=== PATIENT | female | born 1945 | race Hispanic/Latino ===

== ENCOUNTER 2020-02-21 13:00 | Outpatient (CLI) | payer MEDICARE, MEDICAID, SELFPAY ==
--- NOTE | ~2020-02-21 | US_ITS ---
EXAMINATION: US pelvic complete w TV DATE: 02/21/2020 13:47 INDICATION: Pelvic pain Comparison:08/24/2016 TECHNIQUE: Multiple transabdominal and endovaginal sonographic images of the pelvis performed. FINDINGS: The uterus measures 5.4 x 4 x 2.2 cm. There are myometrial calcifications, most likely seco ndary to fibroid changes. The endometrial complex measures 3.8 mm. The ovaries are not visualized. There is no free fluid in the pelvis. There are no abnormal masses seen on either side. IMPRESSION: 1. Uterine calcifications, likely due to underlying fibroid changes. Otherwise, unremarkable pelvic u ltrasound. Reviewed, dictated and finalized at location A. IMPRESSION: 1. Uterine calcifications, likely due to underlying fibroid changes. Otherwise, unremarkable pelvic ultrasound.
== END 2020-02-21 13:01 | disposition home or self-care (01) ==
PROVIDERS: PCP Family Medicine; Visit Provider Family Medicine
DX: R10.2 Pelvic and perineal pain (principal); D25.9 Leiomyoma of uterus, unspecified
CPT/HCPCS: 76830; 76856

== ENCOUNTER 2020-03-13 14:24 | Outpatient (CLI) | payer MEDICARE, MEDICAID, SELFPAY ==
--- NOTE | ~2020-03-13 | CT_ITS ---
EXAMINATION: CT abdomen pelvis w con EXAM DATE: 03/13/2020 14:56 INDICATION: Abdominal pain, symptoms 2 months. Nausea. TECHNIQUE: Spiral CT of the abdomen and pelvis was performed following intravenous injection of 100 m L Omnipaque 350. Axial, coronal and sagittal images were reviewed. The dose-length product (DLP) fo r this examination was 598.89 mGy-cm. The exposure was tailored according to patient size (auto mA e xposure control), and iterative reconstruction (ASIR) was used as additional dose reduction technique . Comparison is made to prior examination from 06/19/2019. FINDINGS: The liver, spleen, adrenal glands and pancreas are unremarkable. There are cholecystectomy clips. Portal and splenic veins are patent. Kidneys enhance symmetrically. There is no hydronephr osis. The uterus is retroverted and morphologically normal. The bladder is unremarkable. There i s no retroperitoneal or pelvic lymphadenopathy. There is mild scattered arteriosclerotic disease. The appendix is normal. The stomach and small bowel are unremarkable. There is mild scattered coloni c diverticulosis. There is no adjacent inflammatory change to suggest diverticulitis. There is expec yani amount of colonic stool. No free intraperitoneal gas. The heart is normal in size. There are no pericardial or pleural effusions. The lung bases are unremarkable. There are no osteoblastic or osteolytic lesions identified. 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 IMPRESSION: 1. No acute intra-abdominal findings. 2. Chronic L4 spondylolysis, grade 1 anterolisthesis. 3. Mild scattered colonic diverticulosis. Reviewed, dictated and finalized at location B.
[2020-03-13 14:50] LABS: Estimated Glomerular Filt Rate > 60
== END 2020-03-13 14:25 | disposition home or self-care (01) ==
PROVIDERS: PCP Family Medicine; Visit Provider Family Medicine
DX: K57.30 Diverticulosis of large intestine without perforation or abscess without bleeding (principal); M47.896 Other spondylosis, lumbar region
CPT/HCPCS: 36415; 74177; Q9967

== ENCOUNTER 2021-12-23 09:21 | Outpatient (CLI) | payer OTHER, SELFPAY ==
--- NOTE | ~2021-12-23 | CT_ITS ---
EXAMINATION: CT abdomen pelvis w con INDICATION: Abdominal pain TECHNIQUE: Computed tomographic images of the abdomen and pelvis were obtained after the administrati on of 100 cc of Omnipaque 350 intravenous contrast. The dose-length product (DLP) was 518.55 mGy-cm. Automated exposure control and iterative reconstruction technique were employed. COMPARISON: 03/13/2020 FINDINGS: Minimal dependent atelectasis is present in the lung bases. The heart size is normal. The g allbladder is surgically absent. There is mild enlargement of the common bile duct and central intrah epatic ducts which is likely due to post cholecystectomy state. The liver, spleen, pancreas, and adre nal glands are normal. Hypoattenuating lesions in the kidneys, measuring up to 6 mm on the left, are too small to characterize but likely represent cysts. No pathologically enlarged abdominal or pelvic lymph nodes are identified. The appendix is normal. No pathologically enlarged abdominal or pelvic ly mph nodes are identified. There is no free intraperitoneal gas or evidence of bowel obstruction. Calc ified uterine fibroids are noted. A moderate volume of colonic stool is present. Again noted is L4 sp ondylolysis with bilateral pars defects and stable grade 1 anterolisthesis of L4 on L5. IMPRESSION: 1. No CT correlate for the patient's symptoms. Reviewed, dictated and finalized at location A.
[2021-12-23 09:55] LABS: Estimated Glomerular Filt Rate > 60
== END 2021-12-23 09:22 | disposition home or self-care (01) ==
PROVIDERS: PCP Family Medicine; Visit Provider Family Medicine
DX: R10.9 Unspecified abdominal pain (principal)
CPT/HCPCS: 74177; Q9967

== ENCOUNTER 2022-01-18 17:11 | Observation (INO) | payer OTHER, SELFPAY ==
--- NOTE | ~2022-01-18 | XR_ITS ---
EXAMINATION: XR abdomen/kub 1V INDICATION: Bowel obstruction TECHNIQUE: Supine views of the abdomen were obtained on 2 radiographs. COMPARISON: CT from yesterday FINDINGS: There is a moderate volume of colonic stool. Gas is seen in the rectum. No definitely dilat ed loops of bowel are evident. The visualized lung bases are clear. Cholecystectomy clips are noted. IMPRESSION: 1. No definitely dilated loops of bowel on this supine examination. Reviewed, dictated and finalized at location A.
--- NOTE | ~2022-01-18 | CT_ITS ---
EXAMINATION: CT abdomen pelvis w con DATE: 01/18/2022 19:18 INDICATION: suprapubic pain TECHNIQUE: Computed tomography (CT) of the abdomen and pelvis was performed with 100 mL Omnipaque-350 intravenous contrast. Automated exposure control and iterative reconstruction technique were employe d. The dose-length product was 621.06 mGy-cm. COMPARISON: 12/23/2021. FINDINGS: Lower thorax: Senescent changes and bibasilar atelectasis. Coronary artery calcifications. Liver: Normal. Biliary/Gallbladder: Gallbladder is absent. No bile duct dilation. Spleen: Normal. Pancreas: No mass or duct dilation. Adrenals:No mass. Kidneys: Subcentimeter left renal hypodensities that are too small to characterize but most likely re present cysts. No stone or hydronephrosis. GI tract: Loop of mildly dilated ileum deep in the pelvis, with mucosal hyperemia and mild surroundin g inflammatory change/fluid. The distal ileum contains fecal content as can be seen with decreased tr ansit time. Normal appendix. Diverticulosis without diverticulitis. Mesentery/Peritoneum: No ascites, mass, or free air. Retroperitoneum: No mass. Pelvis: Pelvic organs are within normal limits. Soft Tissues: Bilateral fat-containing inguinal hernias, with mild inflammatory change and fluid on t he right. Bones: No acute osseous finding. IMPRESSION: Findings concerning for early closed loop obstruction of the distal ileum, possibly secondary to an i nternal hernia. Mildly inflamed fat-containing right inguinal hernia. Results discussed with Dr. Wells by Dr. Sanchez telephonically at 7:34 PM on 01/18/2022. Reviewed, dictated and finalized at location K. IMPRESSION: Findings concerning for early closed loop obstruction of the distal ileum, poss ibly secondary to an internal hernia. Mildly inflamed fat-containing right ingu inal hernia. Results discussed with Dr. Wells by Dr. Sanchez telephonically at 7:34 PM on .
--- NOTE | ~2022-01-18 | XR_ITS ---
EXAMINATION: XR sm bowel follow through WS DATE: 01/19/2022 13:12 INDICATION: Right lower quadrant pain, possible bowel obstruction TECHNIQUE: Group Controller radiograph(s) of the abdomen was/were obtained. Oral contrast was administered, and sequential radiographs of the abdomen were obtained until oral contrast was noted to be in the proxi mal colon. No fluoroscopic images are obtained. COMPARISON: CT from yesterday FINDINGS: Transit time from the stomach to proximal colon was approximately 90 minutes. There is norm al caliber and mucosal fold pattern throughout the small bowel. Terminal ileum is normal. No tether ing or abnormal mass effect observed upon the small bowel with real-time fluoroscopy. IMPRESSION: 1. Unremarkable small bowel follow-through. No obstruction. Reviewed, dictated and finalized at location A.
[2022-01-18 17:19] VITALS: PULSE 65; RESP 24; TEMP 36.8; O2SAT 99
[2022-01-18 17:31] VITALS: BP 145/78; PULSE 60; RESP 15; O2SAT 97
[2022-01-18 18:25] LABS: Basophils Absolute Auto 0.1 K/mm3 (0.0-0.1); Basophils Percent Auto 1.1 % (0.2-1.2); Eosinophils Absolute Auto 0.2 K/mm3 (0-0.3); Eosinophils Percent Auto 3.2 % (0-4.4); Hematocrit 38.7 % (37.0-47.0); Hemoglobin 12.3 g/dL (12.0-15.0); Immature Granulocyte Absolute 0.01 K/mm3 (0.00-0.031); Immature Granulocyte Percent A 0.2 % (0-0.5); Lymphocytes Absolute Auto 1.86 K/mm3 (0.9-3.2); Lymphocytes Percent Auto 34.9 % (18.3-44.2); Mean Corpuscular HGB Conc 31.8 g/dl (32-36); Mean Corpuscular Hemoglobin 27.6 pg (26-34); Mean Corpuscular Volume 86.8 fl (80-100); Mean Platelet Volume 9.4 fl (7.4-10.4); Monocytes Absolute Auto 0.7 K/mm3 (0.1-0.6); Monocytes Percent Auto 13.1 % (2.6-8.5); Neutrophils Absolute Auto 2.5 K/mm3 (1.3-6.7); Neutrophils Percent Auto 47.5 % (45.5-73.1); Platelet Count Result 279 k/mm3 (150-375); Red Blood Count 4.46 M/mm3 (4.2-5.4); Red Cell Distribution Width 13.8 % (11.5-14.5); White Blood Count 5.3 K/mm3 (4.5-10.0)
[2022-01-18 18:37] LABS: Alanine Aminotransferase 13 U/L (6-35); Albumin Level 4.2 g/dL (3.5-5.1); Alkaline Phosphatase 84 U/L (38-126); Anion Gap 5 mmol/L (8-16); Aspartate Amino Transferase 26 U/L (14-36); Bilirubin,Total 0.3 mg/dL (0.2-1.3); Blood Urea Nitrogen 15 mg/dL (7-17); Calcium 9.2 mg/dL (8.4-10.2); Carbon Dioxide 31 mmol/L (22-30); Chloride 101 mmol/L (98-107); Estimated CRCL calculation 65 ml/min; Estimated Glomerular Filt Rate > 60; Glucose 100 mg/dL (65-110); Lipase 141 U/L (23-300); Potassium 3.5 mmol/L (3.4-5.0); Sodium 137 mmol/L (137-145)
--- NOTE | 2022-01-18 19:14 | ED.ABDPAIN ---
HPI - Abdominal Pain General Chief Complaint: Abdominal Pain <Sofi Starr MD - Last Filed: 01/18/22 19:16> Stated Complaint: abd pain <Sofi Starr MD - Last Filed: 01/18/22 19:16> Time Seen by Provider: 01/18/22 17:43 <Sofi Starr MD - Last Filed: 01/18/22 19:16> History of Present Illness HPI narrative: Patient states that she has been having abdominal pain on and off for the last few months, extensive work-up has been negative so far, she states that today she started having severe pain in her suprapubic region. No nausea or vomiting, no fevers, no dysuria. <Sofi Starr MD - Last Filed: 01/18/22 19:16> Related Data Home Medications: Home Medications Medication Instructions Recorded Confirmed amlodipine 2.5 mg PO DAILY 01/18/22 01/18/22 atorvastatin 40 mg PO DAILY 01/18/22 01/18/22 diclofenac sodium 75 mg PO BID PRN 01/18/22 01/18/22 hydrochlorothiazide 25 mg PO DAILY 01/18/22 01/18/22 <Sofi Starr MD - Last Filed: 01/18/22 19:16> Allergies/Adverse Reactions: Allergies Allergy/AdvReac Type Severity Reaction Status Date / Time No Known Allergies Allergy Mild Unverified 01/18/22 17:32 <Sofi Starr MD - Last Filed: 01/18/22 19:16> Review of Systems Review of Systems: All systems reviewed & are unremarkable except as noted in HPI and below <Sofi Starr MD - Last Filed: 01/18/22 19:16> FOR[facility]LY [facility] Social History Social History: Social History Smoking status: Never smoker Alcohol intake: never Substance use: never Spiritual care concerns: No <Sofi Starr MD - Last Filed: 01/18/22 19:16> Exam Narrative: EXAMINATION OF ORGAN SYSTEMS/BODY AREAS: Constitutional: Vital signs per nursing GENERAL: Appears uncomfortable HEAD: Normal with no signs of head trauma. EYES: EOMI, conjunctiva normal ENT: Hearing grossly intact LUNGS: Nonlabored breathing. HEART: [Regular rate and rhythm] ABD: [Soft], [tender to palpation suprapubic region] EXT: Normal range of motion SKIN: [No rashes or lesions.] NEURO: [Alert and oriented x 3. No gross focal sensory or strength deficits.] PSYCH: Normal affect <Sofi Starr MD - Last Filed: 01/18/22 19:16> Course Course Emergency Course: 76-year-old female with acute on chronic abdominal pain, vital signs stable, exam shows soft abdomen that is tender in the suprapubic region, differential includes UTI, diverticulitis, appendicitis, chronic pain. Labs obtained here, CT imaging ordered, patient signed out to oncoming ER physician pending results. <Sofi Starr MD - Last Filed: 01/18/22 19:16> Reevaluation(s) Reevaluation #1: 76-year-old female presenting to the emergency department for evaluation of acute on chronic abdominal pain. Radiology called with a reading of the CT concerning for closed-loop small bowel obstruction. Discussed case with Dr. montalvo, on-call for surgery. He did request an NG tube for the patient. Patient and family declined at this time since the patient was not having any nausea. Patient states she does have a prior surgical history where she had stones removed. Patient states that she does still have her uterus, gallbladder and appendix. Case discussed with the hospitalist and will be admitted to [facility]. <Ten Wells MD - Last Filed: 01/19/22 05:40> Vital Signs Vital signs: Vital Signs Temperature 98.3 F 01/18/22 17:19 Pulse Rate 65 01/18/22 17:19 Respiratory Rate 24 H 01/18/22 17:19 Pulse Oximetry 99 01/18/22 17:19 Temperature 97.6 F 01/18/22 22:25 Pulse Rate 58 L 01/18/22 22:28 Respiratory Rate 14 01/18/22 22:28 Blood Pressure 142/71 H 01/18/22 22:28 Pulse Oximetry 97 01/18/22 22:28 <Sofi Starr MD - Last Filed: 01/18/22 19:16> Vital Signs Temperature 98.3 F 01/18/22 17:19 Pulse Rate 65 01/18/22 17:19 Respiratory Rate 24 H 01/18/22 17:19 Pulse Oximetry 99
[2022-01-18 19:19] LABS: Appearance Urine Slightly Cloudy (Clear); Bilirubin Urine Negative (Negative); Blood Urine Negative (Negative); Color Urine Yellow (Yellow); Glucose Urine UA Negative (Negative); Ketones Urine Negative (Negative); Leukocyte Esterase Ur Negative LEU/UL (Negative); Nitrate Urine Negative (Negative); Protein Urine Negative (Negative); Specific Grav Ur 1.015 (1.001-1.035); Urobilinogen Urine 0.2 mg/dL (<2.0); pH Urine 8.5 (5.0-9.0)
[2022-01-18 19:22] LABS: Add Urine Microscopic? YES; RBC Urine 0-2 /hpf (0-2); Squamous Epithelial Cell Urine Rare /hpf (Few); WBC Urine 0-3 /hpf
[2022-01-18 19:47] VITALS: BP 134/92; PULSE 61; RESP 20; O2SAT 97
[2022-01-18 20:08] LABS: Lactic Acid Reflex 1.1 mmol/L (0.7-2.0)
--- NOTE | 2022-01-18 20:17 | PM.IMHP ---
H&P: HPI History of Present Illness Date/Time: 01/18/22 20:17 Chief Complaint: Abdominal pain. Narrative: This is a 76-year-old female with past medical history significant for hypertension, dyslipidemia, OA. Patient presents to the emergency room for evaluation of abdominal pain in the right lower quadrant. Patient denies any nausea, vomiting, fevers, rigors, chills, diarrhea, no weight loss, patient is able to eat all of her meals, no pain or burning with urination. Preliminary workup was significant for CT of abdomen and pelvis with a closed loop bowel obstruction secondary to internal hernia, right inguinal hernia fat containing mildly inflamed. Decision has been made to admit the patient for further evaluation management and treatment. Review of Systems Review of Systems: Right lower quadrant abdominal pain. Constitutional: Constitutional: Denies chills, Denies fatigue, Denies fever(s) and Denies malaise Eyes: Eyes: Denies change in vision ENT: Denies dysphagia, Denies vertigo, Denies dizziness, Denies nasal congestion, Denies nasal discharge, Denies nasal obstruction and Denies odynophagia Cardiovascular: Cardiovascular: Denies pedal edema, Denies claudication, Denies leg edema, Denies radiating jaw, neck or arm pain, Denies palpitations, Denies dyspnea on exertion and Denies orthopnea Respiratory: Respiratory: Denies cough and Denies dyspnea Gastrointestinal: Gastrointestinal: Reports abdominal pain (Right lower quadrant), Denies melena, Denies hematochezia, Denies coffee ground emesis, Denies dyspepsia, Denies heartburn, Denies diarrhea, Denies nausea and Denies vomiting Genitourinary: Genitourinary: Denies dysuria Musculoskeletal: Musculoskeletal: Denies muscle weakness Integumentary/Breasts: Skin/Breast: Denies rash Neurologic: Denies focal weakness and Denies Sensory deficit (Neuro) Psychiatric: Psychiatric: Reports no additional psychiatric complaints and Reports as per HPI Endocrine: Endocrine: Denies cold intolerance, Denies fatigue, Denies flushing, Denies heat intolerance, Denies polyphagia, Denies polydipsia, Denies polyuria and Denies palpitations Hematologic/Lymphatic: Hematologic/Lymphatic: Reports no additional hematologic/lymphatic complaints and Reports as per HPI Allergic/Immunologic: Allergic/Immunologic: Reports no additional allergic/immunologic complaints and Reports as per HPI PMF Social History Social History Smoking status: Never smoker Alcohol intake: never Substance use: never Spiritual care concerns: No Meds Home Medications and Allergies Home Medications Medication Instructions Recorded Confirmed Type amlodipine 2.5 mg PO DAILY 01/18/22 01/18/22 History atorvastatin 40 mg PO DAILY 01/18/22 01/18/22 History diclofenac sodium 75 mg PO BID PRN 01/18/22 01/18/22 History hydrochlorothiazide 25 mg PO DAILY 01/18/22 01/18/22 History Allergies Allergy/AdvReac Type Severity Reaction Status Date / Time No Known Allergies Allergy Mild Unverified 01/18/22 17:32 Vital Signs Vital Signs - 24 hr 01/18/22 17:19 01/18/22 17:31 01/18/22 19:47 Temperature 98.3 F Pulse Rate 65 60 61 Respiratory Rate 24 H 15 20 Blood Pressure 145/78 H 134/92 H Pulse Oximetry 99 97 97 Exam Narrative: Patient is laying in the stretcher. Const: General: cooperative, comfortable, no acute distress, well developed, alert, awake and other (Well-appearing) Nutritional Appearance: average body habitus Orientation/consciousness: patient oriented x3 HENMT: Head: normal to inspection, normocephalic and atraumatic Ears: hearing grossly normal bilaterally General nose exam: Normal external nose present Face and sinus: normal facial exam Mouth: Yes Normal oral and palatal mucosa present Eyes: General: appearance normal, both eyes and all related structures Alignment and Position: alignment normal Sclera: sclerae normal Pupils: Equal, rou
--- NOTE | 2022-01-18 20:38 | PC.NURSE ---
EDP Dr. Wells spoke w/ pt about need for NG tube placement for nausea and pain control. Pt says she is not nauseas and does not want an NG placed. Pt education reinforced but still refuses.
[2022-01-18 22:25] VITALS: BP 153/75; PULSE 59; RESP 18; TEMP 36.4; O2SAT 96; BMI 29.9
[2022-01-18 22:28] VITALS: BP 142/71; PULSE 58; RESP 14; O2SAT 97
--- NOTE | 2022-01-18 22:49 | ADMGEN ---
This patient, Iveth Farias, was admitted to [facility] Surg Room 321-02. Patient/family oriented to hospital policies and general routines including ID bracelet, bed and alarms, visiting hours, pain management, procedures, bathroom and other care routines, personal items, smoking policy, room service/diet, and visiting hours. Patient is Welsh speaking, traffic sergeant used to interact with patient. Information on how to activate the Rapid Response Team has been discussed. Patient/Family are encouraged to report perceived risks to care and to ask questions if they do not understand what they are told or what they should do.
[2022-01-18] MEDS: SODIUM CHLORIDE 0.9% IV 1,000 ML 75 ML IV CONT (23:14)
[2022-01-18] MEDS: HYDROmorphone HCL INJ (*CRX) 1 MG/ML SYR 0.5 MG IV PUSH (23:14)
[2022-01-19 06:00] VITALS: BP 147/77; PULSE 69; RESP 18; TEMP 36.9; O2SAT 97
[2022-01-19] MEDS: DEXTROSE 5%/LACTATED RINGERS 1,000 ML 75 ML IV CONT ×2 (07:49→14:25)
--- NOTE | 2022-01-19 09:26 | PM.CNGS ---
Assessment and Plan Assessment and plan (1) SBO (small bowel obstruction): Code(s): K56.609 - Unspecified intestinal obstruction, unspecified as to partial versus complete obstruction Status: Acute Assessment and Plan: CT reviewed and discussed in detail with the patient. She has a mildly dilated loop of ileum in the pelvis with the Radiologist reading suggesting concern for an early closed loop obstruction. The patient has not had any nausea or vomiting and has refused an NG tube. Her abdominal pain has resolved and her abdominal exam is benign. I ordered a KUB this morning, which showed no dilated loops of small bowel. Her only previous abdominal surgery is a laparoscopic cholecystectomy, which typically does not result in a significant amount of intra-abdominal adhesions. Will order a Gastrografin small-bowel follow-through today to further evaluate the small bowel obstruction. If the contrast moves through to the colon with no evidence of an obstruction, then we could start a liquid diet. I discussed with the patient that if she does have evidence of an obstruction, then we may need to place an NG tube and she could potentially require exploratory surgery. We will continue IV fluids and keep NPO for the Gastrografin study. Thank you for allowing us to see the patient in consultation and we will continue to follow along with you. (2) Bilateral inguinal hernia: Code(s): K40.20 - Bilateral inguinal hernia, without obstruction or gangrene, not specified as recurrent Status: Acute Assessment and Plan: CT suggested bilateral fat containing inguinal hernias with mild inflammatory change and fluid on the right. She is asymptomatic and this does not seem to be related to her acute symptoms. No indication for urgent surgical intervention. (3) Hypertension: Code(s): I10 - Essential (primary) hypertension Status: Acute Assessment and Plan: Management per hospitalist. Additional Plan I have discussed the patient's case and plan of care with Dr. Lind. History of Present Illness Consult details Consult date: 01/19/22 Reason for consult: other (Small bowel obstruction, CT suggesting possible closed-loop obstruction of the distal ileum) Requesting physician: Ten Wells MD Narrative: This is a 76-year-old Nigerien-speaking female with a history of hypertension and hyperlipidemia, who presented to the ER with complaints of abdominal pain. She reports dealing with mild right-sided abdominal pain intermittently for 10 years. She is told by her PCP that it is chronic pain. She has had [address] scans in 2019 and again in December of 2021 ordered by her PCP that showed no acute findings to account for her abdominal pain. She reports yesterday around 1:00 p.m. the pain became more severe. She points to the entire right side of her abdomen as the location of her pain. She states that it progressively worsened over the next few hours and by 5:00 p.m. she had decided to come into the ER for evaluation. She denies any nausea, vomiting, or bloating. CT scan of the abdomen and pelvis in the ER showed a possible closed loop obstruction of the distal ileum and mildly inflamed fat containing right inguinal hernia. Labs were unremarkable. The patient was admitted to the hospitalist service. She has refused an NG tube. When questioning her about this, she states because she has had bad nose bleeds in the past and is concerned about aggravating bleeding with the tube. Our service has been consulted for the small-bowel obstruction. She is now seen on medical floor. She reports her abdominal pain has completely resolved since being admitted. She denies any nausea or vomiting since admission. She reportedly had 2 normal bowel movements yesterday prior to her worsening pain. She reports noticing passing some gas today. She denies a history of small-bowel obstructions in the past. Her only previous abdominal eva
--- NOTE | 2022-01-19 11:02 | PM.IMPN ---
Progress Note: A&P Assessment and Plan (1) Abdominal pain: Code(s): R10.9 - Unspecified abdominal pain Status: Acute Assessment and Plan: CT of abdomen and pelvis shows bilateral fat containing inguinal hernias Right inguinal hernia is inflamed Supportive care (2) SBO (small bowel obstruction): Code(s): K56.609 - Unspecified intestinal obstruction, unspecified as to partial versus complete obstruction Status: Acute Assessment and Plan: Close loop small-bowel obstruction secondary to internal hernia Patient will be transitioned to clear liquid diet per General surgery IV fluids Daily intake and output Follow surgery recommendations (3) Bilateral inguinal hernia: Code(s): K40.20 - Bilateral inguinal hernia, without obstruction or gangrene, not specified as recurrent Status: Acute Assessment and Plan: Surgery consulted (4) Hypertension: Code(s): I10 - Essential (primary) hypertension Status: Acute Assessment and Plan: Monitor vital signs, resume home medications when appropriate Hydralazine p.r.n. Subjective Date/time seen: 01/19/22 11:02 Patient is alert and oriented x4. Did obtain a interpreter translator in order to discuss the plan of care with the patient at bedside. Surgery evaluated the patient suggested a small-bowel follow-through as well as starting the patient on clear liquid diet as the KUB showed improved today. Patient is currently not any acute pain. She does have some mild discomfort to the lower abdominal. Continue current treatment follow surgery's recommendations Review of Systems Review of Systems: All systems reviewed & are unremarkable except as noted in HPI and below Exam Narrative: General: No acute distress. Fijian-speaking Mental Status: Awake, alert and oriented to person, place, and time with clear speech. Skin: Skin in warm, dry and intact without rashes or lesions. Head: Normocephalic and atraumatic. Eyes: Conjunctivae are clear without exudates or hemorrhage. Sclera is non-icteric. EOM are intact, PERRLA. Ears: The external ear and canal are non-tender and without swelling or discharge. Nose: Nasal mucosa is pink and moist. Septum midline. Nares patent bilaterally. Throat: Oral mucosa pink and moist with good dentition. Tongue midline. Neck: The neck supple without adenopathy. Trachea midline. No JVD. Cardiac: S1 and S2 regular rate and rhythm. No murmurs, gallops, or rubs auscultated. Respiratory: Chest wall symmetric, nontender and without deformity or trauma. Respirations even and unlabored. Lung sounds are clear to auscultation in all lobes bilaterally without wheezes, rhonchi, or rales. Abdominal: Abdomen soft, round and non-tender to palpation. Bowel sounds present and normoactive in all 4 quadrants. Spine: Neck and back with grossly normal curvature, no deformity in appearance or signs of trauma. Extremities: Upper and lower extremities atraumatic without tenderness or deformity. Full range of motion and muscle strength 5/5 to all extremities bilaterally. Neurological: Full and symmetric motor and light touch sensation bilaterally. Cranial nerves II-XII grossly intact. Objective Data Vital Signs Vital Signs: Vital Signs - 24 hr 01/18/22 17:19 01/18/22 17:31 01/18/22 19:47 Temperature 98.3 F Pulse Rate 65 60 61 Respiratory Rate 24 H 15 20 Blood Pressure 145/78 H 134/92 H Pulse Oximetry 99 97 97 01/18/22 22:25 01/18/22 22:28 01/19/22 06:00 Temperature 97.6 F 98.4 F Pulse Rate 59 L 58 L 69 Respiratory Rate 18 14 18 Blood Pressure 153/75 H 142/71 H 147/77 H Pulse Oximetry 96 97 97 Intake/Output Intake/Output: Intake & Output 01/16/22 01/17/22 01/18/22 01/19/22 23:59 23:59 23:59 23:59 Intake Total 0 Balance 0 Meds/Results Medications: Active Medications Generic Name Dose Route Start Last Admin Trade Name Freq PRN Reason Stop Dose Admin Hydralazine HCl 10 mg 01/19/22 04:54 Hy
[2022-01-19 12:00] VITALS: BP 138/77; PULSE 67; RESP 20; TEMP 36.2; O2SAT 96
[2022-01-19 20:00] VITALS: PULSE 67; RESP 20; O2SAT 96
[2022-01-19 22:00] VITALS: BP 165/78; PULSE 61; RESP 20; TEMP 36.2; O2SAT 96
[2022-01-20] MEDS: DEXTROSE 5%/LACTATED RINGERS 1,000 ML 75 ML IV CONT (02:25)
[2022-01-20 05:50] VITALS: BP 152/70; PULSE 65; RESP 16; TEMP 36.4; O2SAT 96
[2022-01-20 10:25] VITALS: BP 147/75; PULSE 64; O2SAT 99
--- NOTE | 2022-01-20 11:52 | P.PNGS_ITS ---
Progress Note: A&P Assessment and Plan (1) SBO (small bowel obstruction): Code(s): K56.609 - Unspecified intestinal obstruction, unspecified as to partial versus complete obstruction Status: Acute Assessment and Plan: * Resolved. OK to discharge today from surgical standpoint. (2) Bilateral inguinal hernia: Code(s): K40.20 - Bilateral inguinal hernia, without obstruction or gangrene, not specified as recurrent Status: Acute Assessment and Plan: * Patient may follow up electively to discuss surgical repair. Most of her abdominal pain symptoms seem related to the right inguinal hernia. Left side overall asymptomatic but would repair both if surgery is planned. Subjective Subjective Date/Time Seen: 01/20/22 11:52 Interval history: Tolerating diet. No more abdominal pain. Exam GI: Inspection: non-distended GI Palp: Yes Soft to palpation, No Tenderness to palpation present (GI) and No Guarding due to palpation present (GI) Auscultation: normal bowel sounds Objective Data Vital Signs Vital Signs: Vital Signs - 24 hr 01/19/22 12:00 01/19/22 20:00 01/19/22 22:00 Temperature 36.2 C L 36.2 C L Pulse Rate 67 67 61 Respiratory Rate 20 20 20 Blood Pressure 138/77 165/78 H Pulse Oximetry 96 96 96 01/20/22 05:50 01/20/22 10:25 Temperature 36.4 C Pulse Rate 65 64 Respiratory Rate 16 Blood Pressure 152/70 H 147/75 H Pulse Oximetry 96 99 Intake/Output Intake/Output: Intake & Output 01/17/22 01/18/22 01/19/22 01/20/22 23:59 23:59 23:59 23:59 Intake Total 1540 1000 Balance 1540 1000 Meds/Results Medications: Active Medications Generic Name Dose Route Start Last Admin Trade Name Freq PRN Reason Stop Dose Admin Hydralazine HCl 10 mg 01/19/22 04:54 Hydralazine Hcl 20 Mg/Ml Vial IV PUSH Q8H PRN Blood Pressure - High SBP=>150 Hydromorphone HCl 0.5 mg 01/18/22 20:21 01/18/22 23:14 Hydromorphone Hcl Inj (*Crx) 1 Mg/Ml Syr IV PUSH 0.5 mg Q4H PRN Administration Pain Rated 7-10 Dextrose/Lactated Ringer's 1,000 mls @ 75 mls/hr 01/19/22 04:55 01/20/22 02:25 Dextrose 5%/Lactated Ringers IV CONT 75 mls/hr .[id number] KARIME Administration Ondansetron HCl 4 mg 01/18/22 20:21 Ondansetron Inj 4 Mg/2 Ml Vial IV PUSH Q4H PRN Nausea Radiology Results: ITS Impressions Abdomen/Pelvis CT 01/18/22 19:23 IMPRESSION: Findings concerning for early closed loop obstruction of the distal ileum, possibly secondary to an internal hernia. Mildly inflamed fat-containing right inguinal hernia. Results discussed with Dr. Wells by Dr. Sanchez telephonically at 7:34 PM on 01/18/2022. Abdomen X-Ray 01/19/22 10:20 IMPRESSION: 1. No definitely dilated loops of bowel on this supine examination. Small Bowel X-Ray 01/19/22 13:14 IMPRESSION: 1. Unremarkable small bowel follow-through. No obstruction.
[2022-01-20 14:00] VITALS: BP 148/82; PULSE 66; RESP 18; TEMP 37.1; O2SAT 99
--- NOTE | 2022-01-20 16:45 | PM.DS ---
DS: Admitting Diagnosis Discharge Date 01/20/22 1700 Admitting Diagnosis Abdominal Pain DS: Discharge Diagnosis Discharge Diagnosis (1) SBO (small bowel obstruction): Code(s): K56.609 - Unspecified intestinal obstruction, unspecified as to partial versus complete obstruction Status: Acute Assessment and Plan: CT of abdomen and pelvis shows bilateral fat containing inguinal hernias. Right inguinal hernia is inflamed. Small-bowel follow-through showed no evidence of obstruction. Surgery was consulted who advised patient may follow up electively to discuss surgical repair of her bilateral hernias. Patient symptoms have resolved, physical exam was unremarkable, she is tolerating normal diet at this time, okay to discharge. (2) Bilateral inguinal hernia: Code(s): K40.20 - Bilateral inguinal hernia, without obstruction or gangrene, not specified as recurrent Status: Acute Assessment and Plan: Plan as above (3) Hypertension: Code(s): I10 - Essential (primary) hypertension Status: Acute Assessment and Plan: Patient has been mildly hypertensive during her stay here, with p.r.n. hydralazine available. Resume home medications upon discharge. DS: Summary Hospital Course Reason for hospitalization: Small-bowel obstruction Hospital Course: See above for hospital course Status at Discharge Overall status at discharge: patient is progressing back to baseline Time Spent with Patient Time attestation: Total time spent providing and/or coordinating discharge services:35 min Time spent: Greater than 30 minutes Exam Narrative: GENERAL APPEARANCE: Alert and oriented x 3, in no apparent distress. HEENT: PERRL, EOMI. Sclerae anicteric. Moist mucous membranes. NECK: Supple. No JVD or obvious carotid bruits. RESPIRATORY: Respirations are nonlabored. Breath sounds are equal and clear bilaterally. No wheezes, Rhonchi, or rales. CARDIOVASCULAR: Regular rate and rhythm with normal S1-S2. No murmurs, gallops, or rubs. GASTROINTESTINAL: Soft, flat, and benign. No mass, tenderness, guarding, or rebound. No organomegaly. Bowel sounds are present. SKIN: Warm, dry, well perfused. Good turgor. No lesions, nodules, or rashes noted. EXTREMITIES: No cyanosis, clubbing, or edema. Radial and pedal pulses intact. NEUROLOGICAL: Alert. Cranial nerves 2-12 are grossly intact. No gross focal deficits to casual conversation. PSYCHIATRIC: Pleasant and cooperative with normal mood and affect. Discharge Plan Discharge Attending physician on discharge: Memo Hernández Consulting providers: Jadon Lind Discharging Clinician: Jordyn Saldaña Anticipated Discharge Date/Time: 01/20/22 16:55 Patient Disposition: Home, Self-Care Activity: other - see discharge instructions Diet: heart healthy Discharge Instructions: Medications: Continue all home meds as prescribed Instructions: Avoid lifting heavy objects over 15-20 lb, as this me cause worsening of your hernia. Continue a heart healthy diet Be sure to get exercise like walking, but don't overdo it. Be sure to get plenty of sleep at night and drink plenty of fluids. Return if you have similar symptoms, or if you experience worsening of your symptoms, loss of consciousness, abdominal pain, nausea, vomiting, fever over 101.4 chest pains, new shortness of breath. Follow up: Follow up with your primary care provider in 2 weeks Follow-up with general surgery as needed to will electively scheduled for repair of the hernias to prevent recurrent entrapment. It has been a pleasure taking care of you during your stay at [facility]! Patient Instructions: Inguinal Hernia (DC), Antibiotic Form Patient Language: Hebrew Stand Alone Forms: General Discharge Information Follow-up/Referrals: Jadon Lind DO [Physician] - Call for Appointment (Follow-up for bilateral inguinal her
== END 2022-01-20 19:10 | disposition home or self-care (01) ==
LOC: ANHED 17:51 → ANH3MEDSUR 21:22
PROVIDERS: Emergency Medicine; Admitting Provider Internal Medicine; Emergency Provider Emergency Medicine; PCP Family Medicine; Visit Provider Student in an Organized Health Care Education/Training Program
DX: K56.609 Unspecified intestinal obstruction, unspecified as to partial versus complete obstruction (principal); K40.20 Bilateral inguinal hernia, without obstruction or gangrene, not specified as recurrent; I10 Essential (primary) hypertension; E78.5 Hyperlipidemia, unspecified
CPT/HCPCS: 36415; 74018; 74177; 74250; 80053; 81001; 83605; 83690; 85025; 96361; 96374; 99285; G0378; J1170; J7030; J7121; Q9967

== ENCOUNTER 2022-04-12 13:35 | Emergency (ER) | payer OTHER, SELFPAY ==
[2022-04-12 13:49] VITALS: BP 119/73; PULSE 92; RESP 16; TEMP 37.4; O2SAT 96
== END 2022-04-12 13:52 | disposition left against medical advice (07) ==
PROVIDERS: Emergency Provider Internal Medicine Hematology & Oncology; PCP Family Medicine
DX: Z53.21 Procedure and treatment not carried out due to patient leaving prior to being seen by health care provider (principal)
CPT/HCPCS: 99199

== ENCOUNTER 2022-12-01 22:57 | Emergency (ER) | payer OTHER, SELFPAY ==
--- NOTE | ~2022-12-01 | CT_ITS ---
CT of the Abdomen and Pelvis: Indication: Abdominal pain Technique: 2.5 mm axial scans were obtained through the abdomen and pelvis following intravenous adm inistration of 100 cc of Omnipaque 350. Dose reduction technique was used on this scan by utilizing a utomated exposure control and iterative reconstruction technique. The dose-length product (DLP) was 4 10.27 mGy-cm. COMPARISON: 01/18/2022 Findings: Scans through the lung bases are unremarkable. The liver, spleen, pancreas, adrenals and kidneys are within normal limits. Cholecystectomy clips are noted. No evidence of aortic aneurysm. No lymphadenopathy. There is mild distention of distal ileal loops with fecalization of contents, but no distinct transit ion point evident. There is no evidence to suggest acute appendicitis. There is a fat-containing righ t inguinal hernia with some fluid in the hernia sac and about the neck of the hernia, with mild infil trative changes. Images through the pelvis were performed. Urinary bladder unremarkable. No adnexal mass seen. Bilater al L4 pars interarticularis defects are present, with 7 mm anterolisthesis of L4 over L5. Impression: Fat-containing right inguinal hernia with some fluid in the hernia and mild adjacent infiltrative katie nges. Appearance is relatively similar overall to prior exam, though an element of acute fat necrosis is a consideration. Mild distention of distal ileal loops with fecalization of contents, but no transition point. Conside r focal reactive ileus. Bilateral L4 pars interarticularis defects, with 7 mm anterolisthesis of L4 over L5. Reviewed, dictated and finalized at location . Impression: Fat-containing right inguinal hernia with some fluid in the hernia and mild adj acent infiltrative changes. Appearance is relatively similar overall to prior e xam, though an element of acute fat necrosis is a consideration. Mild distention of distal ileal loops with fecalization of contents, but no tra nsition point. Consider focal reactive ileus. Bilateral L4 pars interarticularis defects, with 7 mm anterolisthesis of L4 ove r L5.
[2022-12-02 00:16] VITALS: BP 146/84; PULSE 86; RESP 18; TEMP 36.6; O2SAT 97
--- NOTE | 2022-12-02 01:21 | ED.ABDPAIN ---
HPI - Abdominal Pain General Chief Complaint: Abdominal Pain Stated Complaint: abdominal pain intermittent over past year Time Seen by Provider: 12/02/22 00:58 History of Present Illness HPI narrative: This is a 77-year-old female with history of inguinal hernias, previously admitted for small bowel obstruction, who presents to the emergency department complaining of right lower quadrant abdominal pain for the past 2 years. The pain is described as moderate, sharp, located in the right lower quadrant without radiation. There is no associated vomiting, diarrhea or bleeding Related Data Home Medications Medication Instructions Recorded Confirmed amlodipine 2.5 mg tablet 2.5 mg PO DAILY 01/18/22 04/12/22 atorvastatin 40 mg tablet 40 mg PO DAILY 01/18/22 04/12/22 diclofenac sodium 75 mg 75 mg PO BID PRN Pain 01/18/22 04/12/22 tablet,delayed release hydrochlorothiazide 25 mg tablet 25 mg PO DAILY 01/18/22 04/12/22 Allergies Allergy/AdvReac Type Severity Reaction Status Date / Time No Known Allergies Allergy Mild Verified 12/01/22 22:59 Review of Systems Review of Systems: CONSTITUTIONAL: Denies fever, chills, or sweats. CARDIOVASCULAR: Denies chest pain, palpitations, or edema. RESPIRATORY: Denies cough or dyspnea. GASTROINTESTINAL: Denies abdominal pain, nausea, vomiting, or diarrhea. GENITOURINARY: Denies dysuria or hematuria. MUSCULOSKELETAL: Denies back pain, joint pain, or myalgia. NEUROLOGIC: Denies headache, numbness, dizziness, or weakness. PSYCHIATRIC: Denies anxiety or depression. [facility]LY [facility] Past Medical History Medical History (Updated 12/02/22 @ 05:45 by Virgilio Galicia MD) Bilateral inguinal hernia Hyperlipidemia Hypertension SBO (small bowel obstruction) Surgical History Surgical History History of colonoscopy Reportedly normal History of laparoscopic cholecystectomy August 2016 History of left knee surgery Family History Family History Other No pertinent family history Social History Social History Smoking status: Never smoker Alcohol intake: never Substance use: never Living arrangements: with family Additional living arrangements comments: Lives at home with her . She has 12 children. Gender identity (if verbalized by the patient): Female Spiritual care concerns: No Exam Narrative: GENERAL: Well-developed, well-nourished, appears uncomfortable HEAD: Normocephalic, atraumatic. EYES: PERRLA and EOMI. ENT: Nares clear, no rhinorrhea or epistaxis. Mucous membranes moist. Oropharynx without tonsillar hypertrophy exudate or other lesions. CHEST: Clear to auscultation. No respiratory distress. No wheezes rales or rhonchi HEART: Regular rate and rhythm. No murmur heard. Normal peripheral pulses. ABDOMEN: Soft, right lower quadrant tenderness to palpation with active guarding, a soft mass consistent with hernia is palpated, no rebound tenderness, nondistended, normal active bowel sounds. EXTREMITIES: Normal range of motion. No edema. SKIN: Warm, dry, no rash. NEURO: No focal deficits. Alert and oriented x3. PSYCH: Normal mood and affect. Course Course Emergency Course: 03:54 - CBC unremarkable. Chemistry is unremarkable. My review of the CT scan demonstrates a right-sided hernia with some fat stranding. The patient was placed in reverse Trendelenburg position, given pain medications and on palpation, I am able to easily reduce the hernia. The patient states her pain is improved. Stat rad interpretation of the CT abdomen pelvis pending. 05:40 - STAT Rad interpretation demonstrates infiltrative changes are seen within the right lower quadrant, with fat stranding and mild free fluid. No changes noted concerning for bowel obstruction. I discussed these findings with general surgeon, Dr. Enciso
[2022-12-02 01:27] VITALS: BP 187/85; PULSE 64; RESP 16; O2SAT 100
[2022-12-02] MEDS: SODIUM CHLORIDE 0.9% IV 1,000 ML 999 ML IV CONT (01:39)
[2022-12-02 01:55] LABS: Basophils Absolute Auto 0.1 K/mm3 (0.0-0.1); Basophils Percent Auto 1.1 % (0.2-1.2); Eosinophils Absolute Auto 0.1 K/mm3 (0-0.3); Hematocrit 40.9 % (37.0-47.0); Hemoglobin 13.6 g/dL (12.0-15.0); Immature Granulocyte Absolute 0.03 K/mm3 (0.00-0.031); Immature Granulocyte Percent A 0.4 % (0-0.5); Lymphocytes Percent Auto 16.5 % (18.3-44.2); Mean Corpuscular HGB Conc 33.3 g/dl (32-36); Mean Corpuscular Hemoglobin 28.9 pg (26-34); Mean Platelet Volume 9.6 fl (7.4-10.4); Monocytes Absolute Auto 0.5 K/mm3 (0.1-0.6); Monocytes Percent Auto 6.5 % (2.6-8.5); Neutrophils Absolute Auto 5.9 K/mm3 (1.3-6.7); Neutrophils Percent Auto 74.5 % (45.5-73.1); Platelet Count Result 279 k/mm3 (150-375); Red Cell Distribution Width 13.8 % (11.5-14.5); White Blood Count 7.9 K/mm3 (4.5-10.0)
[2022-12-02 02:24] LABS: Alanine Aminotransferase 19 U/L (6-35); Albumin Level 4.4 g/dL (3.5-5.1); Alkaline Phosphatase 93 U/L (38-126); Anion Gap 6 mmol/L (8-16); Aspartate Amino Transferase 29 U/L (14-36); Bilirubin,Total 0.5 mg/dL (0.2-1.3); Blood Urea Nitrogen 15 mg/dL (7-17); Calcium 9.1 mg/dL (8.4-10.2); Carbon Dioxide 29 mmol/L (22-30); Chloride 103 mmol/L (98-107); Estimated CRCL calculation 71 ml/min; Estimated Glomerular Filt Rate > 60; Glucose 121 mg/dL (65-110); Potassium 3.9 mmol/L (3.4-5.0); Sodium 138 mmol/L (137-145)
[2022-12-02] MEDS: MORPHINE SULFATE (*CRX) 4 MG/ML INJ IV PUSH (03:24)
[2022-12-02 04:21] VITALS: BP 150/76; PULSE 70; RESP 16; O2SAT 97
[2022-12-02 04:39] LABS: Appearance Urine Clear (Clear); Bilirubin Urine Negative (Negative); Blood Urine Negative (Negative); Color Urine Yellow (Yellow); Glucose Urine UA Negative (Negative); Ketones Urine Negative (Negative); Leukocyte Esterase Ur Negative LEU/UL (Negative); Nitrate Urine Negative (Negative); Protein Urine Negative (Negative); Urobilinogen Urine 0.2 mg/dL (<2.0); pH Urine 7.5 (5.0-9.0)
[2022-12-02 04:45] LABS: Specific Grav Ur 1.064 (1.001-1.035)
[2022-12-02 04:48] LABS: Add Urine Microscopic? NO
[2022-12-02 06:00] VITALS: BP 149/76; PULSE 68; RESP 16; O2SAT 99
== END 2022-12-02 06:00 | disposition home or self-care (01) ==
PROVIDERS: Emergency Provider Preventive Medicine Aerospace Medicine; PCP Family Medicine
DX: K40.90 Unilateral inguinal hernia, without obstruction or gangrene, not specified as recurrent (principal); R10.31 Right lower quadrant pain; I10 Essential (primary) hypertension; E78.5 Hyperlipidemia, unspecified
CPT/HCPCS: 36415; 74177; 80053; 81003; 85025; 96361; 96374; 96375; 99284; J0131; J2270; J7030; Q9967

== ENCOUNTER 2023-12-26 11:26 | Outpatient (CLI) | payer OTHER, SELFPAY ==
--- NOTE | ~2023-12-26 | XR_ITS ---
EXAMINATION: XR cervical spine 4-5V DATE: 12/26/2023 12:05 INDICATION: Anterior neck pain. TECHNIQUE: 4 views of cervical spine on 5 radiographs were obtained. COMPARISON: None. FINDINGS: There is 13 degrees levoscoliosis of cervicothoracic spine. There is 2 mm retrolisthesis of C6 on C7. There is mild chronic height loss of C6 vertebral body. There is moderately decreased disc height at C4-C5 and C5-C6 and severely decreased disc height at C6-C7. There is multilevel mild to m oderate facet joint osteoarthritis. There is multilevel uncovertebral joint osteoarthritis, severe bi laterally at C5-C6 and C6-C7. There is mild central canal stenosis at C4-C5 and C6-C7. No prevertebra l soft tissue swelling. IMPRESSION: 1. Severe cervical spondylosis. 2. Cervicothoracic levoscoliosis. Reviewed, dictated and finalized at location E.
== END 2023-12-26 11:27 | disposition home or self-care (01) ==
PROVIDERS: PCP Family Medicine; Visit Provider Family Medicine
DX: M47.892 Other spondylosis, cervical region (principal)
CPT/HCPCS: 72050